=== PATIENT | male | born 1960 | race Caucasian/White ===

== ENCOUNTER 2020-04-30 14:53 | Emergency (ER) | payer SELFPAY ==
[2020-04-30] MEDS ORDERED: Lidocaine 1% w/Epinephrine 1:100K 20 ML VIAL ONE (15:56)
--- NOTE | 2020-04-30 19:00 | OP ---
DATE OF PROCEDURE: 04/30/2020 PREOPERATIVE DIAGNOSIS: Right perirectal abscess. POSTOPERATIVE DIAGNOSIS: Right perirectal abscess. PROCEDURES PERFORMED: Incision and drainage of perirectal abscess at bedside in emergency room. ANESTHESIA: 1% Xylocaine with epinephrine. DESCRIPTION OF PROCEDURE: Note, the patient was seen in [place], where the abscess was not successfully drained. In the emergency room, the right perirectal area was prepared with Betadine. Local anesthetic 1% Xylocaine with epinephrine infiltrated in the skin and subcutaneous tissue. A finder needle was placed. Purulent material aspirated perianal and using a radial incision over the right perianal area, the copious amounts of purulent material evacuated, excised an ellipse of skin, packing lightly with gauze. The patient tolerated the procedure well. Job ID: [id number]
--- NOTE | 2020-04-30 19:34 | HP ---
HISTORY OF PRESENT ILLNESS: Curly Bishop is a 59-year-old male seen in [place] for right buttock abscess, perirectal. Attempted drainage there was unsuccessful. This has been going on for five days, worsening. He presents transferred to [facility]. In the emergency room, Dr. Tamez asked me to see him. He has been febrile. The patient overall stable. He has never had such problems before. ALLERGIES: NONE. PHYSICAL EXAMINATION: Right buttock perirectal abscess, indurated fluctuance. ASSESSMENT: Perirectal abscess. PLAN: Bedside drainage. We would recommend daily washing the wound with soap and water in the bath and remove the packing tomorrow, but do not repack it. Use of Kotex pad or another pad to control the drainage. Follow up in my office in 5 to 10 days to assure a [id number]-ovn does not develop since he is febrile. Would give him antibiotics for 5 days. Job ID: [id number]
== END 2020-04-30 18:18 | disposition home or self-care (01) ==
LOC: ERS 14:53
DX: Z48.817 Encounter for surgical aftercare following surgery on the skin and subcutaneous tissue (principal); I10 Essential (primary) hypertension; R50.9 Fever, unspecified; M79.10 Myalgia, unspecified site
CPT/HCPCS: 10060